=== PATIENT | female | born 1970 | race Two or more races ===

== ENCOUNTER 2017-02-25 22:32 | Emergency (ER) | payer MEDICAID, OTHER ==
[~2017-02-25] VITALS: Ht 167.6 cm; Wt 95.7 kg
[2017-02-25 22:32] VITALS: BP 136/84
[~2017-02-25 22:32] MED LIST: TOPI200T PO
--- NOTE | 2017-02-25 23:17 | NUR ---
PT WAS MEDICALLY CLEARED TO BOOK, PRESCIPTION GIVEN TO THE OFFICER AT BEDSIDE AND SIGNED FOR THE PATIENT
[2017-02-25] MEDS ORDERED: HYDROCODONE/APAP 10/325MG 1 EA TABLET PO ONE (23:30)
[2017-02-25] MEDS ORDERED: ONDANSETRON 4 MG TAB.RAPDIS SL ONE (23:30)
== END 2017-02-25 23:28 ==
LOC: ER 22:35
DX: K08.89 Other specified disorders of teeth and supporting structures (principal)
CPT/HCPCS: 99283; A4606; Z7610